=== PATIENT | female | born 1980 | race Caucasian/White ===

== ENCOUNTER 2019-02-23 11:45 | Emergency (ER) | payer OTHER ==
[~2019-02-23] VITALS: Ht 188 cm; Wt 130.2 kg
[2019-02-23] MEDS ORDERED: VENLAFAXINE HC225 MG (12:05)
== END 2019-02-23 14:16 | disposition home or self-care (01) ==
LOC: ER 11:45
DX: S91.221A Laceration with foreign body of right great toe with damage to nail, initial encounter (principal); W45.8XXA Other foreign body or object entering through skin, initial encounter; Y93.89 Activity, other specified; Y92.832 Beach as the place of occurrence of the external cause; Y99.8 Other external cause status